=== PATIENT | male | born 1970 | race Caucasian/White ===

== ENCOUNTER 2024-04-06 11:22 | Day surgery (SDC) | payer OTHER, BC ==
[2024-04-05 11:35] VITALS: BMI 30.4
[2024-04-06] MEDS ORDERED: Ketorolac Tromethamine 30 MG (1 mL) VIAL ONE (11:43)
[2024-04-06] MEDS ORDERED: Acetaminophen 500 MG TAB ONE (11:43)
[2024-04-06] MEDS ORDERED: Bupivacaine/Epinephrine 0.25% 30 ML VIAL ONE (12:45)
[2024-04-06] MEDS ORDERED: CEFAZOLIN 2 GM VIAL ONE (12:45)
[2024-04-06] MEDS ORDERED: PROPOFOL 20 ML ONE (13:05)
[2024-04-06] MEDS ORDERED: Lidocaine 1% PF 5 ML VIAL ONE (13:06)
[2024-04-06] MEDS ORDERED: Rocuronium Bromide 10 MG/ML (10ML VIAL) ONE (13:06)
[2024-04-06] MEDS ORDERED: Fentanyl 250 MCG/5 ML VIAL ONE (13:06)
[2024-04-06] MEDS ORDERED: Midazolam HCl 2 mg/2 ml Vial ONE (13:06)
[2024-04-06] MEDS ORDERED: Ondansetron PF 4 MG/2 ML Vial ONE (13:06)
[2024-04-06] MEDS ORDERED: SUGAMMADEX SODIUM 200 MG/2 ML VIAL ONE (15:05)
[2024-04-06] MEDS ORDERED: fentaNYL 50 mcg/mL 1 mL Vial ONE ×2 (15:30→15:45)
[2024-04-06] MEDS ORDERED: HYDROcodone/Acetaminophen 5/325 mg Tablet ONE (16:07)
== END 2024-04-06 16:40 | disposition home or self-care (01) ==
LOC: CSHSDC 11:22
PROVIDERS: ATTEND Specialist
PROC: 0YU54JZ Supplement Right Inguinal Region with Synthetic Substitute, Percutaneous Endoscopic Approach (ICD-10-PCS; principal; 2024-04-06)
DX: K40.90 Unilateral inguinal hernia, without obstruction or gangrene, not specified as recurrent (principal); I10 Essential (primary) hypertension; R97.20 Elevated prostate specific antigen [PSA]; M25.559 Pain in unspecified hip; F41.9 Anxiety disorder, unspecified; Z79.899 Other long term (current) drug therapy
CPT/HCPCS: C1781; J1885; J2250; J2405; J2704; J3010